=== PATIENT | female | born 1985 | race Caucasian/White ===

== ENCOUNTER 2023-04-30 07:49 | Outpatient (CLI) | payer BC | END 2023-04-30 07:50 | disposition home or self-care (01) | LOC: BICMAMMO 07:49 | PROVIDERS: ATTEND Advanced Practice Midwife | DX: N63.41 Unspecified lump in right breast, subareolar (principal); N63.15 Unspecified lump in the right breast, overlapping quadrants | CPT/HCPCS: 77066; G0279 ==

== ENCOUNTER → 2023-05-10 | Outpatient (CLI) | payer BC, OTHER | LOC: BICULT 09:00 → EDSTATUS 13:00 | PROVIDERS: ATTEND Advanced Practice Midwife | DX: D24.1 Benign neoplasm of right breast (principal); R92.8 Other abnormal and inconclusive findings on diagnostic imaging of breast; N63.41 Unspecified lump in right breast, subareolar | CPT/HCPCS: 19083; 88305 ==

== ENCOUNTER 2024-05-15 13:21 | Outpatient (CLI) | payer BC | END 2024-05-15 13:22 | disposition home or self-care (01) | LOC: BICMAMMO 13:21 | PROVIDERS: ATTEND Internal Medicine | DX: N63.10 Unspecified lump in the right breast, unspecified quadrant (principal); D24.1 Benign neoplasm of right breast | CPT/HCPCS: 77066; G0279 ==